=== PATIENT | male | born 1995 | race American Indian/Alaskan Native ===

== ENCOUNTER 2019-06-22 07:06 | Emergency (ER) | payer MEDICAID ==
--- NOTE | 2019-06-22 09:15 | Emergency Department Report ---
ED General Adult HPI - General Chief complaint: Rectal Pain Stated complaint: HEMORRHOIDS/FLU SX and acute cough Source: patient, EMS Mode of arrival: Ambulatory Limitations: No Limitations - History of Present Illness Initial comments: 24yo M states that he has rectal pain from his chronic hemorrhoids and severe cough. Pt states that his rectal pain is severe and his cough feels like his previous episodes of pneumonia. Pt further states that he feels weak and that he is HIV positive patient but does not know his CD4 count. -: Sudden Time: 09:15 Location: chest, buttocks Radiation: non-radiation Severity scale (0 -10): 8 Quality: aching Consistency: constant Improves with: none Worsens with: none Associated Symptoms: weakness Treatments Prior to Arrival: none - Related Data Previous Rx's Medication Instructions Recorded Last Taken Type DOXYCYCLINE Hyclate [Vibramycin 100 mg PO Q12HR #10 capsule 06/22/19 Unknown Rx CAP] Hydrocort/Pramoxine [Proctofoam-Hc] 10 gm OH TID PRN 10 Days #1 tube 06/22/19 Unknown Rx Hydrocortisone [Anusol-Hc 2.5% TOP 30 gm RC BID 10 Days #1 cream..g. 06/22/19 Unknown Rx CREAM] Allergies Allergy/AdvReac Type Severity Reaction Status Date / Time No Known Allergies Allergy Unverified 06/22/19 07:07 ED Review of Systems ROS: Stated complaint: HEMORRHOIDS/FLU SX Other details as noted in HPI Constitutional: weakness Eyes: denies: eye pain, eye discharge, vision change ENT: denies: ear pain, throat pain Respiratory: denies: cough, shortness of breath, wheezing Cardiovascular: denies: chest pain, palpitations Endocrine: no symptoms reported Gastrointestinal: denies: abdominal pain, nausea, diarrhea Genitourinary: as per HPI Musculoskeletal: denies: back pain, joint swelling, arthralgia Skin: denies: rash, lesions Neurological: as per HPI Psychiatric: denies: anxiety, depression Hematological/Lymphatic: denies: easy bleeding, easy bruising ED Past Medical Hx - Past Medical History Hx HIV: Yes Additional medical history: Pneumonia - Surgical History Past Surgical History?: Yes Additional Surgical History: Lymph node - Social History Smoking Status: Current Every Day Smoker Substance Use Type: Alcohol, Marijuana - Medications Home Medications: Home Medications Medication Instructions Recorded Confirmed Last Taken Type DOXYCYCLINE Hyclate [Vibramycin 100 mg PO Q12HR #10 capsule 06/22/19 Unknown Rx CAP] Hydrocort/Pramoxine [Proctofoam-Hc] 10 gm OH TID PRN 10 Days #1 tube 06/22/19 Unknown Rx Hydrocortisone [Anusol-Hc 2.5% TOP 30 gm RC BID 10 Days #1 cream..g. 06/22/19 Unknown Rx CREAM] ED Physical Exam - General Limitations: No Limitations General appearance: alert, in no apparent distress - Head Head exam: Present: atraumatic, normocephalic - Eye Eye exam: Present: normal appearance - ENT ENT exam: Present: mucous membranes moist - Neck Neck exam: Present: normal inspection - Respiratory Respiratory exam: Present: normal lung sounds bilaterally. Absent: respiratory distress - Cardiovascular Cardiovascular Exam: Present: regular rate, normal rhythm. Absent: systolic murmur, diastolic murmur, rubs, gallop - GI/Abdominal GI/Abdominal exam: Present: soft, normal bowel sounds - Rectal Rectal exam: Present: hemorrhoids (large erythematous with white discharge) - External exam: Present: other (scrotal lesions) - Extremities Exam Extremities exam: Present: normal inspection ED Course Vital Signs 06/22/19 06/22/19 07:07 12:58 Temperature 98.1 F Pulse Rate 101 H 96 H Respiratory 18 18 Rate Blood Pressure 126/80 Blood Pressure 124/80 [Left] O2 Sat by Pulse 96 98 Oximetry ED Medical Decision Making - Medical Decision Making 24yo M states that he has rectal pain from his chronic hemorrhoids and severe cough. Pt states that his rectal pain is severe and his cough feels like his previous episodes of pneumonia. Pt further states that he feels weak and that he is HIV positive patient but does not know his CD4 count. Pt was given Proctofoam and Anusol for hemorrhoids. A chest xray was ordered and results are listed below. Pt was given Doxycycline and told to take as directed for pneumonia. F/U with primary care and see ER if symptoms worsen or new emergent ailments arise. Patient: EFRAIN SABILLON MR#: [id number] : 1995 Acct:[id number] Age/Sex: 24 / M ADM Date: 06/22/19 Loc: ED Attending Dr: Ordering Physician: JAC SKAGGS PA-C Date of Service: 06/22/19 Procedure(s): XR chest routine 2V Accession Number(s): [id number] cc: JAC SKAGGS PA-C Fluoro Time In Minutes: PA AND LATERAL CXR HISTORY: Cough for one week. COMPARISON: None. FINDINGS: Cardiomediastinal silhouette: Normal cardiac size. Normal mediastinal contours. Lungs: Normal expansion. Mild confluent right upper lobe opacities on the frontal view and lower lobe opacity on the lateral view. No pleural effusions. No pneumothorax. Pulmonary vascularity: Normal. Support hardware: None. Additional findings: None. IMPRESSION: 1. Mild right upper lobe pneumonia and possible right lower lobe pneumonia. Signer Name: Leticia Patrick MD Signed: 06/22/2019 9:40 AM Workstation Name: [id number] Transcribed By: REF Dictated By: LETICIA PATRICK MD Electronically Authenticated By: LETICIA PATRICK MD Signed Date/Time: 06/22/19 0940 Critical care attestation.: If time is entered above; I have spent that time in minutes in the direct care of this critically ill patient, excluding procedure time. ED Disposition Clinical Impression: Hemorrhoids, Pneumonia Disposition: DC-01 TO HOME OR SELFCARE Is pt being admited?: No Does the pt Need Aspirin: No Condition: Stable Instructions: Hemorrhoids (ED), Community-acquired Pneumonia (ED), Bacterial Pneumonia (ED) Additional Instructions: t was given Proctofoam and Anusol for hemorrhoids. Pt was given Doxycycline and told to take as directed for pneumonia. F/U with primary care and see ER if symptoms worsen or new emergent ailments arise. Prescriptions: Hydrocortisone [Anusol-Hc 2.5% TOP CREAM] 30 gm RC BID 10 Days #1 cream..g. Hydrocort/Pramoxine [Proctofoam-Hc] 10 gm OH TID PRN 10 Days #1 tube PRN Reason: Hemorrhoids DOXYCYCLINE Hyclate [Vibramycin CAP] 100 mg PO Q12HR #10 capsule Referrals: PRIMARY CARE, [Primary Care Provider] - 3-5 Days [facility] [Outside] - 3-5 Days Time of Disposition: 12:40
--- NOTE | 2019-06-22 09:45 | XRay Report ---
PA AND LATERAL CXR HISTORY: Cough for one week. COMPARISON: None. FINDINGS: Cardiomediastinal silhouette: Normal cardiac size. Normal mediastinal contours. Lungs: Normal expansion. Mild confluent right upper lobe opacities on the frontal view and lower lob e opacity on the lateral view. No pleural effusions. No pneumothorax. Pulmonary vascularity: Normal. Support hardware: None. Additional findings: None. IMPRESSION: 1. Mild right upper lobe pneumonia and possible right lower lobe pneumonia. Signer Name: Jesse Patrick MD Signed: 06/22/2019 9:40 AM Workstation Name: [id number]
[2019-06-22 12:59] VITALS: BP 124/80
== END 2019-06-22 12:57 | disposition home or self-care (01) ==
LOC: ED 07:06
DX: K62.5 Hemorrhage of anus and rectum (principal); J18.9 Pneumonia, unspecified organism; Z21 Asymptomatic human immunodeficiency virus [HIV] infection status; F17.200 Nicotine dependence, unspecified, uncomplicated; F12.10 Cannabis abuse, uncomplicated; Z79.899 Other long term (current) drug therapy
CPT/HCPCS: 71046; 99284